=== PATIENT | male | born 1975 | race African-American/Black ===

== ENCOUNTER 2020-01-14 07:10 | Emergency (ER) | payer OTHER ==
[~2020-01-14] VITALS: Ht 165.1 cm; Wt 59.0 kg
== END 2020-01-14 13:22 | disposition home or self-care (01) ==
LOC: ER 07:10
DX: K80.20 Calculus of gallbladder without cholecystitis without obstruction (principal); K29.70 Gastritis, unspecified, without bleeding

== ENCOUNTER → 2020-02-12 | Emergency (ER) | payer OTHER ==
[~2020-02-12] VITALS: Ht 165.1 cm; Wt 59.0 kg
== END | disposition home or self-care (01) ==
LOC: ER 04:07
DX: K80.00 Calculus of gallbladder with acute cholecystitis without obstruction (principal); R10.84 Generalized abdominal pain

== ENCOUNTER 2020-03-18 21:09 | Inpatient (IN) | payer OTHER ==
[~2020-03-18] VITALS: Ht 165.1 cm; Wt 63.5 kg
[2020-03-23] MEDS ORDERED: PROAIR HFA8.5 GM (09:50)
[2020-03-24] MEDS ORDERED: PERCOCET 5-3251 EACH PO (16:08)
[2020-03-24] MEDS ORDERED: PRILOSEC OTC20 MG PO (16:08)
== END 2020-03-24 17:18 | disposition home or self-care (01) | DRG 419 ==
LOC: ER 21:09 → MEDJ 03-19 10:04 → SEC-K 03-19 10:04 → MEDJ 03-19 13:38 → SURH 03-23 15:50
PROVIDERS: ADMIT Surgery; ATTEND Surgery
PROC: 0FT44ZZ Resection of Gallbladder, Percutaneous Endoscopic Approach (ICD-10-PCS; principal; 2020-03-23 13:00)
DX: K80.10 Calculus of gallbladder with chronic cholecystitis without obstruction (principal); J45.20 Mild intermittent asthma, uncomplicated; Z20.828 Contact with and (suspected) exposure to other viral communicable diseases; F32.89 Other specified depressive episodes